=== PATIENT | male | born 1990 | race African-American/Black ===

== ENCOUNTER 2021-12-26 12:20 | Emergency (ER) | payer MEDICAID ==
[~2021-12-26] VITALS: Ht 182.9 cm; Wt 91.0 kg
[2021-12-26] MEDS ORDERED: ZIPRASIDONE MESYLATE 20MG/VIAL IM STA (12:40)
[2021-12-26] MEDS ORDERED: LACTATED RINGERS 1,000 ML IV SCH (12:45)
[2021-12-26 15:45] VITALS: BP 121/59
== END 2021-12-26 19:14 | disposition home or self-care (01) ==
LOC: ER 12:54
DX: F19.10 Other psychoactive substance abuse, uncomplicated (principal); F15.10 Other stimulant abuse, uncomplicated; R45.1 Restlessness and agitation; F91.8 Other conduct disorders; Z78.1 Physical restraint status
CPT/HCPCS: 99283